=== PATIENT | female | born 1975 | race Hispanic/Latino ===

== ENCOUNTER 2019-07-15 15:08 | Outpatient (CLI) | payer OTHER ==
--- NOTE | 2019-07-15 15:37 | RAD ---
Radiograph left hand 3 views: DATE: 07/15/2019 HISTORY: 44-year-old female with left hand pain FINDINGS: No fracture or dislocation. There are mild degenerative changes at third DIP. The rest of the joint s paces are maintained without erosions or osteophytes. Bone mineralization is normal. No periostitis, permeative lesion, osteolytic lesion, osteoblastic lesion, or soft tissue callus locatio n. IMPRESSION: 1. 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 2. Otherwise negative.
--- NOTE | 2019-07-15 15:41 | RAD ---
Radiograph right hand 3 views: DATE: 07/15/2019 HISTORY: 44-year-old female with right hand pain COMPARISON: None FINDINGS: Fifth DIP joint: Moderate to severe joint space narrowing with irregularity. Moderate osteophytosis. Erosions. Dorsal soft tissue swelling. The rest of the joint spaces are maintained, without erosions or osteophytes. There is there is a small 8 mm focal expansile, slightly lucent lesion at the radial side of the prox imal metadiaphysis of the fourth metacarpal with well-corticated margins. No other focal osseous abnormality. No fracture or dislocation. IMPRESSION: 1.) High-grade arthrosis of the fifth distal interphalangeal joint. Possibility of erosive osteoarthr itis. 2) the rest of the joints are normal. 3) a small, nonspecific, probably benign mildly expansive lesion at the proximal aspect of the fourth metacarpal
== END 2019-07-15 15:09 | disposition home or self-care (01) ==
LOC: BICRAD 15:08
PROVIDERS: ATTEND Family Medicine
DX: M79.641 Pain in right hand (principal); M79.642 Pain in left hand; M15.1 Heberden's nodes (with arthropathy)

== ENCOUNTER 2023-08-07 11:30 | Outpatient (CLI) | payer OTHER | END 2023-08-07 11:31 | disposition home or self-care (01) | LOC: EDSTATUS 11:30 → BICMAMMO 11:30 | PROVIDERS: ATTEND Family Medicine | DX: Z12.31 Encounter for screening mammogram for malignant neoplasm of breast (principal); Z80.3 Family history of malignant neoplasm of breast | CPT/HCPCS: 77063; 77067 ==